=== PATIENT | male | born 1970 | race Caucasian/White ===

== ENCOUNTER 2021-05-29 05:07 | Emergency (ER) | payer MEDICAID ==
[~2021-05-29] VITALS: Ht 170.2 cm; Wt 71.0 kg
[2021-05-29] MEDS ORDERED: LEVETIRACETAM 1000MG PREMIX 100 ML IV ONE (05:30)
[2021-05-29] MEDS ORDERED: SODIUM CHLORIDE 0.9% 1,000 ML IV ONE (05:45)
[2021-05-29 05:46] LABS: BASOPHILS % 0.5 % (0.0-2.0); EOSINOPHILS % 1.2 % (0.0-5.0); HEMATOCRIT. 31.4 % (42.0-52.0); HEMOGLOBIN. 10.4 g/dL (14.0-18.0); LYMPHOCYTES % 12.1 % (20.0-50.0); MEAN CORPUSCULAR HEMOGLOBIN 25.6 pg (28.0-32.0); MEAN CORPUSCULAR VOLUME 77.5 fL (80.0-94.0); MEAN PLATELET VOLUME 7.3 fl (7.4-10.4); MONOCYTES % 10.2 % (2.0-8.0); PLATELET 124 x1000/uL (130-400); RED BLOOD CELL COUNT 4.05 mill/uL (4.7-6.1); RED CELL DISTRIBUTION WIDTH 18.3 % (11.6-14.6)
[2021-05-29 05:55] LABS: CHLORIDE 106 mEq/L (98-107)
[2021-05-29 06:01] LABS: ETHANOL BLOOD < 10 mg/dL
[2021-05-29 06:51] VITALS: BP 113/67
== END 2021-05-29 07:13 | disposition home or self-care (01) ==
LOC: ER 05:07
DX: E11.649 Type 2 diabetes mellitus with hypoglycemia without coma (principal); R56.9 Unspecified convulsions
CPT/HCPCS: 36415; 70450; 80053; 80320; 82962; 85025; 96365; 99284; J1953; J7030; G0480